=== PATIENT | female | born 1985 | race Caucasian/White ===

== ENCOUNTER → 2017-08-08 09:43 | Outpatient (CLI) | payer MEDICAID, SELFPAY ==
--- NOTE | 2017-08-08 10:02 | XR_ITS ---
EXAM: XR lumbar spine min 4V HISTORY: ITS.REASON: ACUTE RT SIDED LOW BACK PAIN W/SCIATICA ORDERING PHYSICIAN: Bernie Munson PATIENT AGE: 31 years COMPARISON: None FINDINGS: Normal alignment. No fracture or dislocation. No lytic or blastic change. No significant degenerative change. The disc spaces are preserved. There is minimal thoracolumbar curvature convex right IMPRESSION: Negative lumbar spine
== END ==
PROVIDERS: PCP Nurse Practitioner Family; Visit Provider Nurse Practitioner Family
DX: E01.0 Iodine-deficiency related diffuse (endemic) goiter (principal); M54.41 Lumbago with sciatica, right side
CPT/HCPCS: 72110

== ENCOUNTER → 2017-08-21 10:46 | Outpatient (CLI) | payer MEDICAID, SELFPAY ==
--- NOTE | 2017-08-21 10:52 | US_ITS ---
US thyroid HISTORY: ITS.REASON: THYROMEGALY ORDERING PHYSICIAN: Bernie Munson PATIENT AGE: 31 years COMPARISON: None FINDINGS: Right lobe: 4 x 1.3 x 2.1 cm. 3 mm hypoechoic nodule mid polar region. 3 mm hypoechoic nodule with small central cord focus lower pole. Left lobe: 3.9 x 1 x 1.7 cm with homogeneous echogenicity Isthmus: Unremarkable IMPRESSION: There are 2 benign-appearing nodules of the right lobe of the thyroid gland. Otherwise negative thyroid ultrasound
== END ==
PROVIDERS: Family Provider Nurse Practitioner; PCP Nurse Practitioner Family; Visit Provider Nurse Practitioner Family
DX: E01.0 Iodine-deficiency related diffuse (endemic) goiter (principal)
CPT/HCPCS: 76536

== ENCOUNTER → 2018-07-07 12:40 | Outpatient (CLI) | payer MEDICAID, SELFPAY ==
[2018-07-07 13:00] LABS: Basophils # 0.1 K/mm3 (0-0.2); Basophils % 1.1 % (0.1-2.0); Eosinophils # 0.2 K/mm3 (0.0-0.4); Eosinophils % 2.3 % (0.1-12.0); Hematocrit 46.6 % (37.0-47.0); Hemoglobin 15.6 g/dL (12.2-16.2); Lymphocytes # 2.4 K/mm3 (0.7-4.5); Lymphocytes % 34.4 % (10-50); Mean Corpuscular HGB Conc 33.5 g/dL (31.8-35.4); Mean Corpuscular Hemoglobin 32.3 pg (27.0-31.2); Mean Corpuscular Volume 96.4 fl (81-99); Mean Platelet Volume 8.5 fl (7.4-10.4); Monocytes # 0.3 K/mm3 (0.1-1.0); Monocytes % 4.7 % (1.7-9.3); Neutrophils % 57.4 % (37.0-80.0); Platelet Count 257 K/mm3 (142-424); Red Blood Count 4.84 M/mm3 (4.20-5.40); Red Cell Distribution Width 12.6 % (11.5-17.5); White Blood Count 6.9 K/mm3 (4.8-10.8)
[2018-07-07 13:54] LABS: Erythrocyte Sedimentation Rate 1 mm/hr (0-20)
[2018-07-07 15:00] LABS: Alanine Aminotransferase 26 U/L (12-78); Albumin Level 4.4 gm/dL (3.4-5.0); Albumin/Globulin Ratio 1.5 (1.1-1.8); Alkaline Phosphatase 43 U/L (46-116); Anion Gap 16.4 mEq/L (5-15); Aspartate Amino Transferase 14 U/L (15-37); Bilirubin,Total 0.6 mg/dL (0.2-1.0); Blood Urea Nitrogen 13 mg/dL (7-18); Calcium 9.4 mg/dL (8.5-10.1); Carbon Dioxide 28 mmol/L (21.0-32.0); Chloride 101 mmol/L (98-107); Chol/HDL Ratio 2.7 (1-3.5); Cholesterol 202 mg/dL (140-200); Creatinine,Serum 0.75 mg/dL (0.55-1.02); Estimated Glomerular Filt Rate 89 ml/min (>60); GFR (African American) 108 ML/MIN (>60); Globulin 2.9 gm/dl (1.3-3.2); Glucose 85 mg/dL (74-106); HDL Cholesterol 76 mg/dL (29-89); LDL Cholesterol 110 mg/dL (0-130); Potassium 4.4 mmoL/L (3.5-5.1); Sodium 141 mmol/L (136-145); T4 (Thyroxine) 8.2 ug/dl (4.7-13.3); Thyroid Stimulating Hormone 1.04 uIU/ml (0.358-3.740); Total Protein,Serum 7.3 gm/dL (6.4-8.2); Triglycerides 79 mg/dL (30-200); VLDL Cholesterol 16 mg/dL (0-40)
[2018-07-07 15:04] LABS: C-Reactive Protein < 0.2 mg/L (0.0-0.9)
[2018-07-08 10:40] LABS: Vitamin D 25 Hydroxy 31.5 ng/mL (30.0-100.0)
[2018-07-08 13:17] LABS: Anti-Centromere B Antibodies <0.2 AI (0.0-0.9); Anti-Jo-1 <0.2 AI (0.0-0.9); Anti-Smith Antibody <0.2 AI (0.0-0.9); Antichromatin Antibodies <0.2 AI (0.0-0.9); Antiscleroderma-70 Antibodies <0.2 AI (0.0-0.9); RNP Antibodies 0.2 AI (0.0-0.9); Sjogren's Anti-SS-A <0.2 AI (0.0-0.9); Sjogren's Anti-SS-B <0.2 AI (0.0-0.9)
[2018-07-08 15:41] LABS: Anti-DNA (DS) Ab Qn 1 IU/mL (0-9)
[2018-07-09 15:20] LABS: EBV Ab VCA, IgM <36.0 U/mL (0.0-35.9)
== END ==
PROVIDERS: PCP Physician Assistant; Visit Provider Physician Assistant
DX: R53.82 Chronic fatigue, unspecified (principal)
CPT/HCPCS: 36415; 80053; 80061; 82652; 84436; 84443; 85025; 85651; 86140; 86225; 86235; 86618; 86664; 86665

== ENCOUNTER → 2018-08-20 12:28 | Outpatient (CLI) | payer MEDICAID, SELFPAY ==
--- NOTE | 2018-08-20 12:34 | US_ITS ---
US transvaginal HISTORY: ITS.REASON: pelvic pain ORDERING PHYSICIAN: Seng Saul MD PATIENT AGE: 32 years Comparison: None FINDINGS: There has been prior hysterectomy. Vaginal cuff has an unremarkable appearance. The right ovary is 3.2 x 2.2 cm and contains an 18 mm cyst. Blood flow is present to the right ovary. The left ovary is 3 x 1 cm and contains a 13 x 8 mm cyst. Blood flow is present. No cul-de-sac fluid evident. IMPRESSION: Prior hysterectomy with small bilateral ovarian cyst otherwise negative pelvic ultrasound
== END ==
PROVIDERS: PCP Physician Assistant; Visit Provider Obstetrics & Gynecology
DX: R10.2 Pelvic and perineal pain (principal)
CPT/HCPCS: 76830

== ENCOUNTER → 2018-09-10 09:44 | Outpatient (CLI) | payer MEDICAID, SELFPAY ==
[2018-09-10 09:46] LABS: Microscopic, Urine URINE MICROSCOPIC (MICROSCOPIC)
[2018-09-10 10:22] LABS: Urine Pregnancy, HCG Qual. Negative (Negative)
[2018-09-10 10:32] LABS: Basophils # 0.1 K/mm3 (0-0.2); Basophils % 1.2 % (0.1-2.0); Eosinophils # 0.2 K/mm3 (0.0-0.4); Eosinophils % 3.4 % (0.1-12.0); Hematocrit 44.4 % (37.0-47.0); Hemoglobin 14.4 g/dL (12.2-16.2); Lymphocytes # 2.8 K/mm3 (0.7-4.5); Lymphocytes % 42.6 % (10-50); Mean Corpuscular HGB Conc 32.4 g/dL (31.8-35.4); Mean Corpuscular Hemoglobin 31.5 pg (27.0-31.2); Mean Corpuscular Volume 97.2 fl (81-99); Mean Platelet Volume 8.3 fl (7.4-10.4); Monocytes # 0.4 K/mm3 (0.1-1.0); Monocytes % 5.8 % (1.7-9.3); Platelet Count 295 K/mm3 (142-424); Red Blood Count 4.57 M/mm3 (4.20-5.40); Red Cell Distribution Width 12.4 % (11.5-17.5); White Blood Count 6.4 K/mm3 (4.8-10.8)
[2018-09-10 10:58] LABS: Appearance,Urine CLEAR (Clear); Bilirubin,Urine Negative (Negative); Blood, Urine Negative (Negative); Color,Urine YELLOW (Yellow); Glucose,Urine (UA) Negative (Negative); Ketones,Urine Negative (Negative); Leukocyte Esterase,Urine Negative (Negative); Nitrate,Urine Negative (Negative); PH,Urine 5.5 (5.0-8.5); Protein,Urine Negative (Negative); Specific Gravity, Urine >= 1.030 (1.005-1.030); Urobilinogen,Urine 0.2 EU/dl (0.2)
[2018-09-10 11:14] LABS: Alanine Aminotransferase 20 U/L (12-78); Albumin Level 4.3 gm/dL (3.4-5.0); Albumin/Globulin Ratio 1.6 (1.1-1.8); Alkaline Phosphatase 43 U/L (46-116); Anion Gap 15.1 mEq/L (5-15); Aspartate Amino Transferase 7 U/L (15-37); Bilirubin,Total 0.4 mg/dL (0.2-1.0); Blood Urea Nitrogen 13 mg/dL (7-18); Calcium 9.5 mg/dL (8.5-10.1); Carbon Dioxide 28 mmol/L (21.0-32.0); Chloride 105 mmol/L (98-107); Creatinine,Serum 0.76 mg/dL (0.55-1.02); Estimated Glomerular Filt Rate 88 ml/min (>60); GFR (African American) 106 ML/MIN (>60); Globulin 2.7 gm/dl (1.3-3.2); Glucose 95 mg/dL (74-106); Potassium 4.1 mmoL/L (3.5-5.1); Sodium 144 mmol/L (136-145)
[2018-09-10 12:04] LABS: Bacteria,Urine 1+ /lpf; Mucus,Urine Trace /lpf
== END ==
PROVIDERS: Visit Provider Obstetrics & Gynecology
DX: Z01.818 Encounter for other preprocedural examination (principal); R10.2 Pelvic and perineal pain; N80.9 Endometriosis, unspecified
CPT/HCPCS: 36415; 80053; 81001; 81025; 85025

== ENCOUNTER 2018-09-15 06:04 | Day surgery (SDC) | payer MEDICAID, SELFPAY ==
[2018-09-11 15:17] VITALS: BMI 16.1
[2018-09-15] VITALS (14 sets, daily range): BP systolic 103–132; BP diastolic 64–91; PULSE 50–81; RESP 16–20; TEMP 36.2–43; O2SAT 97–100
--- NOTE | 2018-09-15 07:44 | HMH.OPNOTE ---
Date of procedure: 09/15/18 Pre-op Diagnosis:: 1. Pelvic pain. 2. Endometriosis. Post-op Diagnosis:: 1. Pelvic pain. 2. Endometriosis. Procedure performed:: Diagnostic laparoscopy. Surgeon:: Seng Saul MD OFF[employer] MACH[employer] SALES REPRESENTATIVE:: Phillip Boone Anesthesia: HANSA Estimated blood loss (mL): 10 Clinical Note:: Previous LAVH, with adnexa in situ. Endometriosis. Operative findings:: 1. Endometriosis. 2. Right adnexal venous distention. 3. Ovaries not identified. Operative note:: After the patient was prepped and draped in usual fashion and general anesthesia was administered, a sponge stick was placed in the vagina for elevation of the vaginal cuff during the laparoscopy. After appropriate regloving, the skin on either side of the umbilicus was tented up with towel clips. A small incision was made in the base of the umbilicus with a knife, and a Veress needle was inserted into the abdominal cavity. After a demonstration of negative pressure, an adequate pneumoperitoneum was created with carbon dioxide gas. The Veress needle was then replaced with a trocar and cannula, using the [employer] system, and the trocar placed with the laparoscope. The uterus was surgically absent. Neither ovary was identifiable. To the right of the cul-de-sac, a large venous distention was identified, atop of which was a thick white implant of endometriosis, with a bluish core. Several other, especially to the right of midline. 2 deep peritoneal pocket defect were also noted in the right broad ligament. The upper abdomen was explored and found to be normal (liver, spleen, gallbladder). Returning to the pelvis, it was felt that the endometriotic lesions were too approximate to large vascularity, and so no surgical attempts were made to remove them. The pneumoperitoneum was then reduced, and the instruments were removed under direct visualization. The skin incision was infused with a dilute solution of Marcaine, as a local anesthetic, and closed with a subcuticular suture of 3-0 Vicryl. The wound was appropriately dressed. The sponge stick was removed from the vagina. The estimated blood loss was less than 10 cc. The patient tolerated the procedure well, and was taken to PACU in excellent condition. She will be discharged today, if her vital signs are stable. Condition: stable Disposition: same day Specimens:: None. Complications:: None.
--- NOTE | 2018-09-15 07:48 | P.OP_ITS ---
Date of procedure: 09/15/18 Pre-op Diagnosis:: 1. Pelvic pain. 2. Endometriosis. Post-op Diagnosis:: 1. Pelvic pain. 2. Endometriosis. Procedure performed:: Diagnostic laparoscopy. Surgeon:: Seng Saul MD CLINICAL INFORMATICIST:: Phillip Boone Anesthesia: HANSA Estimated blood loss (mL): 10 Clinical Note:: Previous LAVH, with adnexa in situ. Endometriosis. Operative findings:: 1. Endometriosis. 2. Right adnexal venous distention. 3. Ovaries not identified. Operative note:: After the patient was prepped and draped in usual fashion and general anesthesia was administered, a sponge stick was placed in the vagina for elevation of the vaginal cuff during the laparoscopy. After appropriate regloving, the skin on either side of the umbilicus was tented up with towel clips. A small incision was made in the base of the umbilicus with a knife, and a Veress needle was inserted into the abdominal cavity. After a demonstration of negative pressure, an adequate pneumoperitoneum was created with carbon dioxide gas. The Veress needle was then replaced with a trocar and cannula, using the [employer] system, and the trocar placed with the laparoscope. The uterus was surgically absent. Neither ovary was identifiable. To the right of the cul-de-sac, a large venous distention was identified, atop of which was a thick white implant of endometriosis, with a bluish core. Several other, especially to the right of midline. 2 deep peritoneal pocket defect were also noted in the right broad ligament. The upper abdomen was explored and found to be normal (liver, spleen, gallbladder). Returning to the pelvis, it was felt that the endometriotic lesions were too approximate to large vascularity, and so no surgical attempts were made to remove them. The pneumoperitoneum was then reduced, and the instruments were removed under direct visualization. The skin incision was infused with a dilute solution of Marcaine, as a local anesthetic, and closed with a subcuticular suture of 3-0 Vicryl. The wound was appropriately dressed. The sponge stick was removed from the vagina. The estimated blood loss was less than 10 cc. The patient tolerated the procedure well, and was taken to PACU in excellent condition. She will be discharged today, if her vital signs are stable. Condition: stable Disposition: same day Specimens:: None. Complications:: None.
--- NOTE | 2018-09-15 07:49 | HMH.ANESCL ---
[facility] Anesthesia Checklist - Patient Identification Patient Identification: Arm Band - Structural Data Admitted From: Home Planned Operative Procedure/s: diagnostic laparoscopy Consent for Planned Operative Procedure(s) Verified: Yes Verified Documents: Surgical Consent, History and Physical - NPO Status Verified Time NPO: 00:00 - Additional verifications Anesthesia Reactions: No - Airway Assessment C-Spine Mobility Assessed: Yes (mp2) TMJ Mobility Assessed: Yes Dentition: Good Dentition - Neurological Assessment Level of Consciousness: Awake, Alert - Anesthesia Plan Anesthesia Risk discussed: Yes Anesthesia Plan: Verified ASA Class: II Anesthesia Type: General [facility] History I have reviewed the patient's past medical history: Yes Medical History: Reports:: Anxiety, Cancer (cervical- 2005) Denies:: Diabetes Mellitus Type 1, Diabetes Mellitus Type 2, Internal Pacemaker, MRSA, Seizures *Have you ever received a pneumonia vaccine?: No *Have you received a flu vaccine this season?: No Other Medical History: Denies: Blood Transfusion Reaction Laterality Cases: Bilateral: Tonsillectomy, Other Other Surgeries: Yes: Hysterectomy-Partial. No: Pacemaker Amputation: No Fractures: No - *Social History Educational Level: Completed High School Smoking Status: Current every day smoker Tobacco Type: cigarettes # Packs/Day (cigarettes): 1 Alcohol Intake: never Alcohol Intake Frequency:: other Substance Use Type: denies use *Occupational Status:: unemployed Housing: house Household Members: significant other *Travel in the last 8 weeks: None - Psychiatric History Expresses thoughts of harming self/others: None Suicide Plan Description: No Plan Pschychiatric History:: Reports:: Anxiety Family Hx:: Cancer, Diabetes, Hypertension, Coronary Artery Disease
--- NOTE | 2018-09-15 07:50 | HMH.ANESI ---
[facility] Anesthesia Record Part I Intake, IV Amount: 1,000 Estimated blood loss (mL): 5 Urine output (mL): 5 Blood Pressure: 103/71 SaO2: 98 Pulse Rate: 77 Respiratory Rate: 16 Temperature: 97.2 F Patient is:: Drowsy, Stable Stable to PACU at:: 07:50
--- NOTE | 2018-09-15 07:51 | HMH.ANESII ---
[facility] Anesthesia Record Part II Discharge Time: 08:20 Destination: [facility] PACU nurse assessment reviewed?: Yes Patient Condition:: Good Anesthesia Complications:: None Swallowing reflex intact?: Yes Cyanosis?: No
--- NOTE | 2018-09-15 07:51 | P.PN_ITS ---
[facility] Anesthesia Record Part II Discharge Time: 08:20 Destination: [facility] PACU nurse assessment reviewed?: Yes Patient Condition:: Good Anesthesia Complications:: None Swallowing reflex intact?: Yes Cyanosis?: No
[2018-09-15 08:49] LABS: Hematocrit 39.9 % (37.0-47.0); Hemoglobin 13.3 g/dL (12.2-16.2)
--- NOTE | 2018-09-15 08:59 | PC.NURSE ---
0757-oral airway removed at this time, pt on room air-O2 sats stable
--- NOTE | 2018-09-15 09:01 | PC.NURSE ---
0806-spoke with Kaia,[facility]-notified pt very anxious and crying at this time. Phillip ordered Versed 1mg IVP up to 2mg at this time. Administered Versed 1mg IVP as ordered, vss. Will continue to monitor.
--- NOTE | 2018-09-15 09:03 | PC.NURSE ---
0811-additional 1mg Versed IVP administered for anxiousness at this time. Pt noted to be crying, singing aloud, and shaking and reports this is r/t being anxious. VSS. Will continue to monitor. 0818-detailed report called to KINSEY Tyler. Pt reports she feels more at ease at this time. Pt no longer shaking or crying. Pt appears to be resting easier. 0820-Pt transported to post op via stretcher w/rails up and left in care of KINSEY Tyler with bed locked in lowest position. VSS. Pt stable.
--- NOTE | 2018-09-15 09:34 | PC.NURSE ---
PT/FAMILY EDUCATED ON FIRST DOSE OF PAIN MEDICATION GIVEN AT 903AM. PT CAN HAVE THE NEXT DOSE OF PAIN MEDICATION IF NEEDED IN 4-6 HOURS.
== END 2018-09-15 09:34 | disposition home or self-care (01) ==
LOC: OR 06:06
PROVIDERS: PCP Emergency Medicine; Visit Provider Obstetrics & Gynecology
PROC: (CPT 49320; principal; 2018-09-15 07:30)
DX: N80.9 Endometriosis, unspecified (principal); I87.8 Other specified disorders of veins; Z90.710 Acquired absence of both cervix and uterus
CPT/HCPCS: 49320; 36415; 85014; 85018; 96372; 96374; J2405; J2710

== ENCOUNTER → 2020-06-05 10:02 | Outpatient (CLI) | payer OTHER, SELFPAY ==
--- NOTE | 2020-06-05 10:02 | US_ITS ---
PROCEDURE: US TRANSVAGINAL CLINICAL INDICATION: US T/V- pelvic pain Right lower quadrant pain, history of endometriosis COMPARISON: US TRANVAG US transvaginal from 08/20/2018 FINDINGS: Prior hysterectomy. The vaginal cuff has an unremarkable appearance. The right ovary is 3 x 1.9 cm and contains a 1.6 cm simple appearing cyst. The left ovary is 2 x 1 cm containing a small follicle. No cul-de-sac fluid. IMPRESSION: Prior hysterectomy otherwise negative pelvic ultrasound Dictated by: Aram Schneider MD 06/05/2020 19:26 Aram Schneider MD in OV 06/05/2020 19:26
== END ==
PROVIDERS: PCP Emergency Medicine; Visit Provider Obstetrics & Gynecology
DX: R10.2 Pelvic and perineal pain (principal)
CPT/HCPCS: 76830